=== PATIENT | male | born 1965 | race African-American/Black ===

== ENCOUNTER 2020-09-08 09:16 | Inpatient (IN) | payer OTHER ==
[~2020-09-08] VITALS: Ht 182.9 cm; Wt 96.2 kg
[2020-09-08 09:17] VITALS: BP 139/76
[2020-09-08] MEDS ORDERED: BIKTARVY 50-201 EACH PO (09:23)
[2020-09-08 10:04] LABS: MCH 32.2 pg (26.0-34.0); MCHC 33.2 g/dL (28.0-37.0); MCV 96.9 fL (80.0-100.0); PLATELET COUNT 308 thou/uL (150-400); RBC 3.72 mil/uL (4.50-6.00); RDW 13.4 % (10.5-14.5); WBC 20.3 thou/uL (4.0-11.0)
[2020-09-08 10:15] LABS: CALCIUM 9.7 mg/dL (8.5-10.1); CREATININE 1.8 mg/dL (0.7-1.3); POTASSIUM 3.3 mmol/L (3.5-5.1)
[2020-09-08 10:19] LABS: APTT 39.9 Seconds (24.5-32.8); D-DIMER 0.65 ug/mLFEU (0.19-0.50); INR 1.1; PROTIME 11.2 Seconds (9.3-11.4)
[2020-09-08 10:28] LABS: ALBUMIN 3.3 g/dL (3.4-5.0); TOTAL PROTEIN 8.8 g/dL (6.4-8.2); TROPONIN-I 0.07 ng/mL (<0.06)
--- NOTE | 2020-09-08 10:46 | EKG ---
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 : 1965 Requested By: Bello Couch Order Number: [id number] MD: Matthew Fuentes Measurements Intervals Brooks Rate: 109 P: 44 GA: 122 QRS: 209 QRSD: 88 T: 3 QT: 321 QTc: 433 Interpretive Statements Sinus tachycardia Right axis deviation Abnormal R-wave progression, late transition Compared to ECG 12/05/2000 07:59:22 Right-axis deviation now present Electronically Signed On 09-08-2020 10:46:10 PUBLICATIONS PRODUCTION SUPERVISOR by Matthew Fuentes [email or web address] <ELECTRONICALLY SIGNED> By: Mathtew Fuentes MD 09/08/20 1046 1005 [id number] MD CHERRY Echeverria
[2020-09-08 11:25] LABS: BE(vivo) 2.7 mmol/L (-2 to +3); HCO3 26.6 mmol/L (22.0-26.0); PCO2 38.5 mmHg (35.0-45.0); PO2 63.2 mmHg (80.0-100.0); pH 7.457 (7.360-7.450); sO2 93.3 % (92.0-98.0)
[2020-09-08 11:25] LABS: ABSOLUTE NEUTROPHILS 19.3 thou/uL (1.4-8.2); METAMYELOCYTES 1 %
--- NOTE | 2020-09-08 11:53 | NUR ---
SPOKE TO PT'S SISTER, IRMA: [phone], TO PROVIDE UPDATE AFTER CONFIRMING WITH PT THAT IT IS OK TO TALK TO HER.
[2020-09-08 15:10] LABS: HEMATOCRIT 33.7 % (42.0-52.0); HEMOGLOBIN 11.3 gm/dL (14.0-18.0); MCH 32.5 pg (26.0-34.0); MCHC 33.5 g/dL (28.0-37.0); MCV 96.9 fL (80.0-100.0); RBC 3.48 mil/uL (4.50-6.00); RDW 13.4 % (10.5-14.5); WBC 22.5 thou/uL (4.0-11.0)
[2020-09-08 16:36] VITALS: BP 106/67
[2020-09-08 20:10] VITALS: BP 122/76; BP 122/84; BP 126/81
[2020-09-08 20:34] VITALS: BP 134/89
[2020-09-08 20:39] VITALS: BP 134/89
--- NOTE | 2020-09-08 20:44 | NUR ---
Called to give report but nobody answers phone
[2020-09-08 21:05] VITALS: BP 140/85
[2020-09-08 21:41] LABS: BE(vivo) 1.5 mmol/L (-2 to +3); HCO3 25.4 mmol/L (22.0-26.0); PCO2 37.9 mmHg (35.0-45.0); PO2 60.5 mmHg (80.0-100.0); pH 7.444 (7.360-7.450); sO2 92.2 % (92.0-98.0)
[2020-09-09] VITALS (129 sets, daily range): BP systolic 85–131; BP diastolic 49–78
[2020-09-09 01:11] LABS: BE(vivo) -0.6 mmol/L (-2 to +3); HCO3 24.2 mmol/L (22.0-26.0); PCO2 40.4 mmHg (35.0-45.0); pH 7.396 (7.360-7.450); sO2 94.3 % (92.0-98.0)
--- NOTE | 2020-09-09 05:02 | HC ---
[facility] [place] [address] [place] [address] CONSULTATION Name: JUDI GARCIA Room #: [facility] IN M.R.#: [id number] Admission: 09/08/20 Attend Phys: Joss Claros MD Discharge: Date of : 69 Report #: [id number] THIS REPORT FOR: cc: [facility] - Family physician unknown FAM - Family physician unknown Pipo Sheehan MD ~ DATE OF SERVICE: 09/08/2020 INFECTIOUS DISEASE CONSULTATION ATTENDING PHYSICIAN: Dr. Hodge. REASON FOR EVALUATION: COVID-19 infection, complicated by pneumonitis; respiratory failure; under treatment for HIV. HISTORY OF SUBJECTIVE: Chart reviewed, patient examined. This is a 55-year-old gentleman with history of HIV, although he reports undetectable viral load and high CD4 counts in 1200s. He had developed illness in the last several days. He was actually tested positive for COVID-19 roughly 3 days ago. He notably has had some issue with diarrhea subsequent to a colonoscopy as well. He generally feels weak. Over the course of last 24-48 hours prior to admission, he had progressive dyspnea. On evaluation, he was found to be hypoxic, markedly elevated CRP of 556 and procalcitonin level of 20.35. ABGs on 4 liters showed a pO2 of 63. White count was elevated at 20.3. Underwent V/Q scan, which showed no evidence of PE. He has had some low-grade temperature elevations. ALLERGIES: None known. MEDICATIONS: Currently include ceftriaxone, azithromycin, dexamethasone, famotidine, albuterol, cholecalciferol, zinc, vitamin, ondansetron, and ivermectin. PAST MEDICAL HISTORY: History of HIV, well controlled on antiviral therapy, specifically Biktarvy. SOCIAL HISTORY: Occasional ethanol. No tobacco or illicit drug use. FAMILY HISTORY: Noncontributory. REVIEW OF SYSTEMS: Otherwise, unremarkable. PHYSICAL EXAMINATION: GENERAL: He is alert and cooperative. He is in moderate distress. He has BiPAP in place. FiO2 of 50%. HEENT: Normocephalic. Extraocular muscles intact. [facility] [address] [place] [address] CONSULTATION Name: JUDI GARCIA Matthias Room #: 245-P [facility] IN M.R.#: [id number] Admission: 09/08/20 Attend Phys: Joss Claros MD Discharge: Date of : 69 Report #: [id number] LUNGS: Scattered coarse breath sounds. HEART: Distant, regular. Borderline tachycardic. I do not appreciate a murmur. ABDOMEN: Soft, nontender, nondistended. EXTREMITIES: No cyanosis. GENITOURINARY AND RECTAL: Deferred. LABORATORY DATA: As described above. Most recent CBC: White count 22.5, H and H 11.3 and 33.7, platelets of 298. ABGs: pH 7.457, pCO2 of 35, pO2 of 63.2 on 4 liters. Procalcitonin elevated at 20.35. CRP of 556. D-dimer 0.65. ProBNP of 289. Lactic acid 1.7. Chest x-ray, perihilar and bibasilar infiltrates, question viral pneumonia. ASSESSMENT AND PLAN: COVID-19 infection, complicated by pneumonitis, respiratory failure. I am concerned about a secondary bacterial pneumonitis as well given the high procalcitonin, and we will adjust antimicrobial therapy, do additional diagnostic studies to evaluate for bacterial etiologies. He has been on combination therapy for the COVID. We will add remdesivir as well given the severity of his illness at this point. Continue corticosteroids as well as ivermectin and vitamins. He remains quite tenuous at this point. Continue oxygen support. Blood cultures in progress. We will follow through with those. <ELECTRONICALLY SIGNED> By: Pipo Sheehan MD 09/09/20 0502 [id number] [id number] Pipo Sheehan MD /nt
[2020-09-09 05:08] LABS: HEMATOCRIT 28.5 % (42.0-52.0); HEMOGLOBIN 9.4 gm/dL (14.0-18.0); MCH 32.6 pg (26.0-34.0); MCV 98.8 fL (80.0-100.0); PLATELET COUNT 290 thou/uL (150-400); RBC 2.88 mil/uL (4.50-6.00); RDW 13.8 % (10.5-14.5); WBC 20.2 thou/uL (4.0-11.0)
[2020-09-09 05:26] LABS: ALBUMIN 2.4 g/dL (3.4-5.0); CALCIUM 8.3 mg/dL (8.5-10.1); CREATININE 1.7 mg/dL (0.7-1.3); MAGNESIUM 2.6 mg/dL (1.8-2.4); POTASSIUM 3.8 mmol/L (3.5-5.1); TOTAL BILIRUBIN 0.5 mg/dL (0.2-1.0); TOTAL PROTEIN 7.1 g/dL (6.4-8.2)
[2020-09-09 05:34] LABS: ABSOLUTE NEUTROPHILS 18.8 thou/uL (1.4-8.2)
[2020-09-09 05:35] LABS: ANISOCYTOSIS 1+
--- NOTE | 2020-09-09 06:43 | NUR ---
PATIENT ARRIVED AT THE UNITS AT APPROX 0100. PATIENT ON THE VENT. PROPOFOL AND FENTANYL FOR SEDATION. AFEBRILE. VSS. BLOCK IN PLACE WITH GOOD U/O. FAMILY UPDATED. PATIENT CAME WITH PERSONAL BELONGINGS. PHONE WITH PHONE MOLDING CUTTER. PATIENT ID AND INSURANCE CARD. SISTER UPDATED. WILL KEEP MONITORING.
--- NOTE | 2020-09-09 11:42 | NUR ---
CARLA ESCUDERO UPDATED ON PT CONDITION. HER QUESTIONS WERE ANSWERED. CONSENT FOR CENTRAL LINE WAS OBTAINED.
[2020-09-09 11:54] LABS: URINE BILIRUBIN NEGATIVE (Negative); URINE BLOOD 3+ (Negative); URINE COLOR YELLOW; URINE GLUCOSE-RANDOM* NEGATIVE (Negative); URINE KETONES NEGATIVE (Negative); URINE LEUKOCYTES-REFLEX TRACE (Negative); URINE NITRITE-REFLEX NEGATIVE (Negative); URINE PROTEIN (DIPSTICK) 2+ (Negative); URINE UROBILINOGEN 0.2 E.U./dl (0.2-1.0)
[2020-09-09 11:55] LABS: URINE CLARITY CLOUDY
[2020-09-09 12:25] LABS: SQUAMOUS 4-10 Moderate /LPF (0-3)
[2020-09-09 12:26] LABS: MUCUS >6 Heavy strn/LPF (None Seen)
[2020-09-09 12:28] LABS: URINE RBC >20 Many /HPF (0-2); URINE WBC-REFLEX 6-15 Few /HPF (0-5)
[2020-09-09 12:29] LABS: URIC ACID CRYSTALS >10 Many /LPF (None Seen)
[2020-09-09 12:32] LABS: COARSE GRANULAR CASTS 0-3 Few /LPF (None Seen)
--- NOTE | 2020-09-09 15:14 | NUR ---
CONSULTED TO PLACE A CENTRAL LINE FOR A PATIENT POST INTUBATION. COVID +. ORDER AND CONSENT NOTED. A #6F TRIPLE LUMEN CENTRAL LINE WAS PLACED PER HOSPITAL POLICY. LINE WAS 25CM AND ADVANCED TO 7CM EXTERNAL. A STAT CHEST XRAY CONFIRMED LINE IN PROPER POSITION AND RELEASED FOR USE
--- NOTE | 2020-09-09 19:41 | NUR ---
VASCULAR ACCESS NURSE NOTIFIED AGAIN THAT THE PATIENT HAD REMOVED HER CENTRAL LINE. DR. HICKS RESPONDED TO THE PAGE AND RESTRAINTS WERE ORDERED SO SHE WOULD NOT REMOVE THE REPLACEMENT. A #6F TRIPLE LUMEN CENTRAL LINE WAS PLACED TO THE RIGHT IJ PER POLICY. A STAT CHEST XRAY WAS ORDERED FOR CONFIRMATION
--- NOTE | 2020-09-09 22:25 | NUR ---
This RN spoke to sister Gunter regarding patient status at 2200. Updated on ventilator settings, medications, and answered all questions.
[2020-09-10] VITALS (134 sets, daily range): BP systolic 87–131; BP diastolic 54–84
--- NOTE | 2020-09-10 06:42 | NUR ---
Pt weaned down to 60% FiO2, O2 sats up. Pt weaned off of levophed gtt. Remains on heparin gtt, propofol and fentanyl gtt. Restraints intact. Pt progressing towards goals. Will continue to monitor.
--- NOTE | 2020-09-10 08:06 | NUR ---
ORDERS FOR EVAL AND TREAT. Pt CURRENTLY ON VENT AND SEDATED. WILL PLACE ON HOLD AND AWAIT NEW ORDERS WHEN Pt IS APPROPRIATE FOR THERAPY
--- NOTE | 2020-09-10 11:19 | NUR ---
Nutrition: REC initiate Tube feeds of Vital HP 3 cartons/day (or 30 mL/hr) while on present propofol rate. Consider 250 mL H20 flush q 6 hrs with beneprotein powder added in flushes. Currently on IVFs at 125 mL/hr so may need to decrease if flushes ordered.
--- NOTE | 2020-09-10 15:48 | NUR ---
PT ADMITTED RELATED TO COVID PNA. PT IS SEDATED AND INTUBATED FIO2 100%. PT WITH HX OF HIV. PT RECEIVEING CONVALESCENT PLASMA, REMDESIVIR, IVERMECTIN, IV ABX, AND IV STEROIDS. CM CALLED AND SPOKE WITH PT'S SISTER IRMA GARCIA . SHE IS AN ER NURSE IN [place]. 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 SHE INDICATED SHE WASN'T SURE WHO PT'S PCP WAS. PT HAS THREE SISTERS TERENCE RENATE GURROLA IN [place] , KEMAL GARCIA IN [place] , ONE BROTHER WHO LIVES AROUND THE CORNER FROM PT HERE IN [place] , [place] WHO LIVE LOCALLY. IRMA INDICATED THAT SHE AND HER SISTER IN [place] TERENCE HAVE BEEN SWITCHING OFF CALLING FOR UPDATES. CM FOLLOWING REGARDING POSSIBLE NEEDS UPON DISCHARGE. CM TO FOLLOW INDICATED WITH DC PLANNING.
[2020-09-10 16:45] LABS: ALBUMIN 1.9 g/dL (3.4-5.0); CALCIUM 7.9 mg/dL (8.5-10.1); CREATININE 1.3 mg/dL (0.7-1.3); DIRECT BILIRUBIN 0.1 mg/dL (<0.1-0.2); PHOSPHORUS 3.3 mg/dL (2.5-4.9); POTASSIUM 4.6 mmol/L (3.5-5.1); TOTAL BILIRUBIN 0.3 mg/dL (0.2-1.0); TOTAL PROTEIN 6.3 g/dL (6.4-8.2)
--- NOTE | 2020-09-10 19:13 | NUR ---
UPDATED SISTER, IRMA ON PT'S CONDITION, DR ENRIQUE AWARE OF PT'S NEED FOR ANTIVIRAL MEDS FOR HIV, NONE ORDERED OF YET, HE SAID PT WILL BE OK TODAY WITHOUT THEM, DESATED TO 80S, FI02 UP TO 100%, WEANED BACK DOWN TO 90% BY RT, COVID TEST SENT PER DR NARANJO, REPORT GIVEN TO NAIN HINKLE
[2020-09-11] VITALS (98 sets, daily range): BP systolic 98–140; BP diastolic 58–84
--- NOTE | 2020-09-11 06:56 | NUR ---
RECEIVED OT ORDERS ON 09/08/2020, YESTERDAY (09/10) OT DEFERRED DUE TO PT. ON VENTILATOR, COVID +, AND IN RESTRAINTS. NOT APPROPRIATE FOR THERAPY. TODAY, CHART REVEALS SAME. WILL PLACE PT. ON HOLD AND AWAIT NEW ORDERS WHEN APPROPRIATE TO BEGIN THERAPY.
[2020-09-11 07:06] LABS: HEMATOCRIT 29.3 % (42.0-52.0); HEMOGLOBIN 9.6 gm/dL (14.0-18.0); MCH 32.8 pg (26.0-34.0); MCHC 32.9 g/dL (28.0-37.0); MCV 99.8 fL (80.0-100.0); RBC 2.93 mil/uL (4.50-6.00); RDW 14.1 % (10.5-14.5); WBC 11.9 thou/uL (4.0-11.0)
[2020-09-11 07:21] LABS: ANION GAP 10 mmol/L (7-16); BUN 22 mg/dL (7-18); CALCIUM 8.2 mg/dL (8.5-10.1); CHLORIDE 111 mmol/L (98-107); CO2 25 mmol/L (21-32); CREATININE 1.3 mg/dL (0.7-1.3); DIRECT BILIRUBIN < 0.1 mg/dL (<0.1-0.2); GLUCOSE 151 mg/dL (74-106); PHOSPHORUS 3.1 mg/dL (2.5-4.9); POTASSIUM 4.2 mmol/L (3.5-5.1); SGOT 21 U/L (15-37); SGPT 45 U/L (30-65); SODIUM 146 mmol/L (136-145); TOTAL BILIRUBIN 0.3 mg/dL (0.2-1.0); TOTAL PROTEIN 6.4 g/dL (6.4-8.2)
--- NOTE | 2020-09-11 19:37 | NUR ---
ASSUMED CARE OF PT 0700. 1100 DR JOEY MOYA REGARDING HEPARIN GTT. HEPARING GTT DC'D THIS AFTERNOON. TUBEFEED INCREASED TO GOAL OF 30 AT 1600. VERSED ADDED IN AM W/PT BREATHING 29. 1745 NITA COOK REGARDING PT BLOOD GLUCOSE OF 210. MODERATE SLIDING SCALE INTITIATED PER JOEY. ADEQUATE OUTPUT. AFEBRILE. PROGRESSING IN PLAN OF CARE
[2020-09-12] VITALS (58 sets, daily range): BP systolic 92–130; BP diastolic 58–84
--- NOTE | 2020-09-12 03:14 | NUR ---
pt remains intubated with ac at 18 and fio2 down to 75%, remains sedated with propafol and versed, pain controlled with fentanyl gtt, tf at goal of 30 and 250 h2o flushes residual as high as 50cc this shift. giron with dark sediment and adequate output repositioning as needed. updated sister on pts progress will con't to monitor per ppoc.
[2020-09-12 05:22] LABS: HEMATOCRIT 28.9 % (42.0-52.0); HEMOGLOBIN 9.3 gm/dL (14.0-18.0); MCH 32.6 pg (26.0-34.0); MCHC 32.4 g/dL (28.0-37.0); MCV 100.7 fL (80.0-100.0); RBC 2.87 mil/uL (4.50-6.00); WBC 11.7 thou/uL (4.0-11.0)
[2020-09-12 05:41] LABS: ALBUMIN 1.9 g/dL (3.4-5.0); ANION GAP 9 mmol/L (7-16); BUN 19 mg/dL (7-18); CALCIUM 7.9 mg/dL (8.5-10.1); CHLORIDE 106 mmol/L (98-107); CO2 27 mmol/L (21-32); CREATININE 1.3 mg/dL (0.7-1.3); DIRECT BILIRUBIN < 0.1 mg/dL (<0.1-0.2); GLUCOSE 212 mg/dL (74-106); POTASSIUM 3.3 mmol/L (3.5-5.1); SGOT 16 U/L (15-37); SGPT 39 U/L (30-65); SODIUM 142 mmol/L (136-145); TOTAL BILIRUBIN 0.4 mg/dL (0.2-1.0); TOTAL PROTEIN 6.2 g/dL (6.4-8.2)
--- NOTE | 2020-09-12 09:28 | NUR ---
BG levels elevated, recommend consider discontinue D5 since hypernatremia has been corrected. Recommend increase tube feed to new goal of 40ml/hr and continue 1 packet beneprotein in each water flush.
--- NOTE | 2020-09-12 13:09 | NUR ---
Pt sister Lyric was updated today. Her questions were answered.
--- NOTE | 2020-09-12 19:40 | NUR ---
VAT CHANGED RIJ DRESSING, LARGE AMT SECRETIONS ON AND UNDER CVAD DRG. SPOKE WITH RADHA RN, RECOMMENDED SC PLACED DUE TO INCREASED INFECTION RISK WITH SECRETIONS ON RIJ
[2020-09-13] VITALS (62 sets, daily range): BP systolic 90–136; BP diastolic 49–88
[2020-09-13 05:12] LABS: HEMATOCRIT 31.1 % (42.0-52.0); HEMOGLOBIN 9.9 gm/dL (14.0-18.0); MCH 32.1 pg (26.0-34.0); MCV 100.4 fL (80.0-100.0); RBC 3.1 mil/uL (4.50-6.00); RDW 13.8 % (10.5-14.5); WBC 15.8 thou/uL (4.0-11.0)
[2020-09-13 05:39] LABS: CALCIUM 8.1 mg/dL (8.5-10.1); CREATININE 1.3 mg/dL (0.7-1.3); POTASSIUM 4.2 mmol/L (3.5-5.1)
--- NOTE | 2020-09-13 06:12 | NUR ---
SPOKE WITH PT'S FAMILY MEMBER IRMA VIA PHONE. SHE INQUIRED ABOUT PT'S CURRENT STATUS AND ASKED FOR A WAY TO SEE PT. DISCUSSED USING AN IPAD FOR FACETIMING WITH THE PT. IRMA STATED THAT SHE WOULD LIKE TO TRY THIS TODAY. THE IPHONE NUMBER SHE WOULD HAVE IS [phone]. VSS. 1 LITER OF URINE OUTPUT VIA BLOCK. NO BM THIS SHIFT. BATH AND LINEN CHANGED. GLIDE SHEET PLACED UNDER PT FOR EASE OF MOVEMENT. CLRT. TOLERATING TUBE FEEDS. ATTEMPTS TO WEAN FI02 LEVEL. UNABLE TO TOLERATE AND DE-SATS. REMAINS AT 70%. LARGE AMOUNT OF ORAL SECRETIONS. THICK WADE SPUTUM INLINE. PT SLOWLY PROGRESSING TOWARDS GOALS IN PLAN OF CARE.
--- NOTE | 2020-09-13 13:00 | NUR ---
PATIENTS FAMILY CALLED, AND DID FACETIME WITH PATIENT FOR 2HOURS. FAMILY ALSO UPDATED ON PATIENTS STATUS AND PLAN OF CARE.
--- NOTE | 2020-09-13 20:08 | NUR ---
PATIENT MAINTAINING STATUS. NOT IMPROVING, BUT IS NOT DIGRESSING. PATIENT REMAINS ON VENT. CONTINUE TF. CONT SEDATION.
[2020-09-14] VITALS (51 sets, daily range): BP systolic 102–143; BP diastolic 64–93
[2020-09-14 05:31] LABS: CALCIUM 8.4 mg/dL (8.5-10.1); CREATININE 1.3 mg/dL (0.7-1.3); POTASSIUM 3.9 mmol/L (3.5-5.1)
[2020-09-14 05:36] LABS: HEMATOCRIT 26.6 % (42.0-52.0); HEMOGLOBIN 8.6 gm/dL (14.0-18.0); MCHC 32.1 g/dL (28.0-37.0); MCV 99.6 fL (80.0-100.0); RBC 2.67 mil/uL (4.50-6.00); RDW 14.1 % (10.5-14.5); WBC 14.8 thou/uL (4.0-11.0)
[2020-09-14 08:21] LABS: BE(vivo) 2.1 mmol/L (-2 to +3); HCO3 27.4 mmol/L (22.0-26.0); PCO2 45.8 mmHg (35.0-45.0); PO2 67.1 mmHg (80.0-100.0); pH 7.394 (7.360-7.450); sO2 93.2 % (92.0-98.0)
--- NOTE | 2020-09-14 14:45 | NUR ---
1445- Nurse updated patients spokes person, Lyric, on current status and plan of care. She expressed she is coming into town from [place], this coming Thursday. 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
[2020-09-15] VITALS (32 sets, daily range): BP systolic 96–137; BP diastolic 58–83
--- NOTE | 2020-09-15 19:30 | NUR ---
Patient not progressing towards plan of care as evidenced by continued requirement for high peep setting on ventilator. This was communicated to patients spokes person. Plan of care is to continue to monitor for need for ventilator, continue to provide medication as prescribed to help with patients bowels, monitor tube feeding tolerance, and perform assessments q2-4 hours.
--- NOTE | 2020-09-15 22:29 | NUR ---
ASSUMED CARE OF PT AT 1900. PT SEDATED ON PROPOFOL, VERSED, AND FENTANYL. VENT SETTINGS UNCHANGED, SATING 100%. TOLERATING TUBE FEEDING, LARGE BOWEL MOVEMENT NOTED, RECTAL TUBE INSERTED. 2209 - IRMA (SISTER) CALLED. UPDATED GIVEN. QUESTIONS ANSWERED. SISTER PLANS ON TRAVELING FROM [place] TO BE CLOSE TO BROTHER. THIS RN WENT OVER VISITING POLICY AND SISTER WAS VERY PLEASANT AND STATED SHE UNDERSTOOD.
[2020-09-16] VITALS (31 sets, daily range): BP systolic 91–137; BP diastolic 51–80
[2020-09-16 03:44] LABS: BE(vivo) 6.8 mmol/L (-2 to +3); HCO3 31.2 mmol/L (22.0-26.0); PCO2 44.2 mmHg (35.0-45.0); PO2 60.7 mmHg (80.0-100.0); pH 7.467 (7.360-7.450); sO2 92.5 % (92.0-98.0)
[2020-09-16 05:09] LABS: HEMATOCRIT 25.9 % (42.0-52.0); HEMOGLOBIN 8.6 gm/dL (14.0-18.0); MCH 32.4 pg (26.0-34.0); MCV 98.2 fL (80.0-100.0); PLATELET COUNT 431 thou/uL (150-400); RBC 2.64 mil/uL (4.50-6.00); RDW 13.8 % (10.5-14.5); WBC 16.5 thou/uL (4.0-11.0)
[2020-09-16 05:27] LABS: ALBUMIN 2.5 g/dL (3.4-5.0); CALCIUM 8.8 mg/dL (8.5-10.1); CREATININE 1.4 mg/dL (0.7-1.3); POTASSIUM 3.6 mmol/L (3.5-5.1); TOTAL BILIRUBIN 0.3 mg/dL (0.2-1.0); TOTAL PROTEIN 6.6 g/dL (6.4-8.2)
[2020-09-16 06:11] LABS: ABSOLUTE NEUTROPHILS 12.9 thou/uL (1.4-8.2); METAMYELOCYTES 1 %
--- NOTE | 2020-09-16 14:31 | NUR ---
1431: Nurse updated patients sister, Lyric, on patient current fio2, and status. She expressed she undestood he had a bowel movement last night. Nurse answered her questions. Her plans are to come tomorrow to get his cell phone, and garbage pick up man his inurance and ID card, at the ED.
--- NOTE | 2020-09-16 15:05 | NUR ---
Patient not progressing towards plan of care as evidenced by patient fio2 and peep 10. He is tolerating tube feedings and continued with stools. Plan of care is to continue to monitor for ability to wean off ventilator, and assessments q2-4 hours.
[2020-09-17] VITALS (32 sets, daily range): BP systolic 87–130; BP diastolic 51–86
--- NOTE | 2020-09-17 00:20 | NUR ---
ARGATROBAN GTT TITRATION: DRIP INITIATED AT 210909/16/20. PER PROTOCOL APPT WAS DRAWN AFTER TWO HOURS OF INFUSING. APTT AT 2315 ON 09/16/20: 49.0. CONSIDERED IN THERAPEUTIC RANGE. WILL PLAN TO REDRAW ANOTHER APTT IN TWO HOURS PER PROTOCOL. NO CHANGE MADE TO GTT WHICH IS CURRENTLY RUNNING AT 0.5 MCG/KG/MIN.
--- NOTE | 2020-09-17 16:23 | NUR ---
Pt is covid positive. Pt remains intubated with FIO2 60% PEEP 10. Pt is on enteral tube feedings. Pt on iv vanc and ceftriaxone. Cm following.
--- NOTE | 2020-09-17 19:44 | NUR ---
PT IS NOT PROGRESSING TOWARDS DISCHARGE, RN ATTEMPTED TO WEAN THE PT'S SEDATION, PT DID NOT TOLERATE EVIDENCED BY INTENSE COUGHING AND GAGGING. CPAP TRIAL WAS ATTEMPTED BY RT, PT LASTED ABOUT 1 MIN RR WAS INCREASED TO 45 AND PT HAD DESAT AT THAT POINT. Q2H TURNS WERE MAINTAINED THROUGHOUT THE SHIFT. FAMILY MEMBERS DID NOT CALL THIS SHIFT. RN SIGNING OFF AT THIS TIME
[2020-09-18] VITALS (28 sets, daily range): BP systolic 90–127; BP diastolic 54–82
--- NOTE | 2020-09-18 06:46 | NUR ---
ASSESSMENT: PT REMAIN SEDATED WHILE INTUBATED. VSS, AFEBRILE. UO ADEQUATE, LIQUID STOOL NOTED IN FMS TUBE. COMPLETE BATH GIVEN. TOLERATING TF PER OG. SR PER MONITOR. DID NOT SPEAK WITH FAMILY LAST NIGHT. VENT SETTING UNCHANGED DURING THE NIGHT. RIGHT IJ INTACT AND PATENT. SLOW PROGRESS TOWARDS DC GOALS. WILL CONTINUE TO MONITOR.
[2020-09-18 09:30] LABS: ALBUMIN 2.3 g/dL (3.4-5.0); CALCIUM 8.7 mg/dL (8.5-10.1); CREATININE 1.2 mg/dL (0.7-1.3); MAGNESIUM 2.4 mg/dL (1.8-2.4); POTASSIUM 3.9 mmol/L (3.5-5.1); TOTAL BILIRUBIN 0.3 mg/dL (0.2-1.0); TOTAL PROTEIN 6.4 g/dL (6.4-8.2)
--- NOTE | 2020-09-18 11:15 | NUR ---
IRMA- sister called to inquire regarding pt status. updated on sedation, vent settings, yesterday unable to tolerate cpap trial since hr and rr rate increased only after 2 minutes. remains in critical condition. she stated that she spoke with Dr. Chelsie cardona's infectious disease md. (bactrium always worked well whether indicated or not.) sister questioned about pt being on Vitarvi, then further continued that she just discovered pt is a new onset diabetic.
--- NOTE | 2020-09-18 18:40 | NUR ---
Lyric, sister inquired in am about 0930 regarding pt status. see previous note. she asked to have the opportunity to face time. At this time, Lyric is face timing with her brother. ipad in room and she has the opportunity to speak with him as long as she prefers.
[2020-09-19] VITALS (30 sets, daily range): BP systolic 89–151; BP diastolic 49–91
[2020-09-19 03:28] LABS: BE(vivo) 10.2 mmol/L (-2 to +3); HCO3 34.5 mmol/L (22.0-26.0); PCO2 45.3 mmHg (35.0-45.0); PO2 74.3 mmHg (80.0-100.0); pH 7.499 (7.360-7.450); sO2 95.9 % (92.0-98.0)
[2020-09-19 05:43] LABS: BASOPHILS 0.5 % (0.0-2.0); EOSINOPHILS 0.4 % (0.0-3.0); HEMATOCRIT 26.2 % (42.0-52.0); HEMOGLOBIN 8.7 gm/dL (14.0-18.0); LYMPHOCYTES 13.6 % (24.0-44.0); MCH 32.7 pg (26.0-34.0); MCHC 33.1 g/dL (28.0-37.0); MCV 98.7 fL (80.0-100.0); MONOCYTES 16.3 % (1.0-8.0); PLATELET COUNT 384 thou/uL (150-400); POLYS 69.2 % (36.0-66.0); RBC 2.66 mil/uL (4.50-6.00); RDW 13.6 % (10.5-14.5); WBC 15.9 thou/uL (4.0-11.0)
--- NOTE | 2020-09-19 06:05 | NUR ---
ASSESSMENT: PT REMAIN STATUS QUO. VENT SETTINGS CHANGED FIO2 40%, PEEP 8, AC 18, TV 500. TOLERATING TUBE FEEDING. LOW RESIDUALS. LOW GRADE TEMP AT THE BEGINNING OF THE SHIFT, 99.0 MAX. COPIOUS AMTS OF ORAL SECRETIONS. MINIMAL AMTS PER ETT. VSS, SLOW PROGRESS TOWARDS DC GOALS,. WILL CONTINUE TO MONITOR.
[2020-09-19 06:18] LABS: ALBUMIN 2.8 g/dL (3.4-5.0); CALCIUM 9.4 mg/dL (8.5-10.1); CREATININE 1.3 mg/dL (0.7-1.3); POTASSIUM 3.6 mmol/L (3.5-5.1); TOTAL BILIRUBIN 0.4 mg/dL (0.2-1.0)
[2020-09-19 14:39] LABS: URINE BILIRUBIN NEGATIVE (Negative); URINE BLOOD 2+ (Negative); URINE CLARITY SL CLOUDY; URINE COLOR YELLOW; URINE GLUCOSE-RANDOM* NEGATIVE (Negative); URINE KETONES NEGATIVE (Negative); URINE LEUKOCYTES-REFLEX NEGATIVE (Negative); URINE NITRITE-REFLEX NEGATIVE (Negative); URINE PROTEIN (DIPSTICK) NEGATIVE (Negative); URINE SPECIFIC GRAVITY 1.025 (1.005-1.035); URINE UROBILINOGEN 0.2 E.U./dl (0.2-1.0)
[2020-09-19 15:23] LABS: MUCUS 0-3 Light strn/LPF (None Seen); SQUAMOUS None Seen /LPF (0-3)
[2020-09-19 15:25] LABS: AMORPHOUS URATES Few /LPF (None Seen); BACTERIA-REFLEX 1-9 Few /HPF (None Seen); CRYSTALS None Seen /LPF (None Seen); URINE RBC >20 Many /HPF (0-2); URINE WBC-REFLEX 0-5 Rare /HPF (0-5)
--- NOTE | 2020-09-19 15:32 | NUR ---
ASSUMED CARE OF PT AT 0700. PT SEDATED, AROUSABLE, ABLE TO NOD AND FOLLOW SIMPLE COMMANDS. STABLE ON CURRENT VENT SETTINGS: TV 500 AC 18 PEEP 8 FIO2 40%. TOLERATING TUBE FEED. NO SIGNIFICANT RESIDUALS. CONTINUES ON PROPOFOL, FENTANYL AND VERSED GTT. C SIN PLACE. LOW GRADE FEVERS REMAIN - BLOOD CULTURES DRAWN. URINE AND SPUTUM COLLECTED AND SENT TO LAB. SLOW PROGRESS TOWARD POC GOALS.
[2020-09-20] VITALS (37 sets, daily range): BP systolic 82–165; BP diastolic 48–90
[2020-09-20 03:55] LABS: BE(vivo) 12.1 mmol/L (-2 to +3); HCO3 36.4 mmol/L (22.0-26.0); PCO2 46.4 mmHg (35.0-45.0); PO2 74.9 mmHg (80.0-100.0); pH 7.513 (7.360-7.450); sO2 96.1 % (92.0-98.0)
[2020-09-20 05:55] LABS: ABSOLUTE NEUTROPHILS 8.6 thou/uL (1.4-8.2); BASOPHILS 0.8 % (0.0-2.0); EOSINOPHILS 0.4 % (0.0-3.0); HEMATOCRIT 24.7 % (42.0-52.0); HEMOGLOBIN 8.1 gm/dL (14.0-18.0); MCV 99.9 fL (80.0-100.0); MONOCYTES 17.5 % (1.0-8.0); PLATELET COUNT 310 thou/uL (150-400); POLYS 64.3 % (36.0-66.0); RBC 2.47 mil/uL (4.50-6.00); RDW 14.5 % (10.5-14.5); WBC 13.4 thou/uL (4.0-11.0)
[2020-09-20 06:09] LABS: CALCIUM 9.3 mg/dL (8.5-10.1); CREATININE 1.2 mg/dL (0.7-1.3); POTASSIUM 3.6 mmol/L (3.5-5.1); TOTAL BILIRUBIN 0.5 mg/dL (0.2-1.0)
--- NOTE | 2020-09-20 06:40 | NUR ---
ASSESSMENT: SPOKE WITH IRMA, THE PT'S SISTER. SHE WAS ABLE TO FACE TIME WITH PT FOR A SHORT PERIOD OF TIME BEFORE BATTERY NEEDED RECHARGING. PT BECAME TEARY WITH THE PHONE CALL. WILL CONTINUE TO MONITOR.
--- NOTE | 2020-09-20 14:14 | NUR ---
ON-GOING ASSESSMENT: CM REVIEWED CHART. PT REMAINS ON THE VENT, IV ANBX, IV STEROIDS. POSSIBLE WEANING TRIALS. CM WILL CONTINUE TO FOLLOW TO ASSIST NEEDED.
[2020-09-20 16:46] LABS: BE(vivo) 7.5 mmol/L (-2 to +3); HCO3 31.9 mmol/L (22.0-26.0); PCO2 44.9 mmHg (35.0-45.0); PO2 93.7 mmHg (80.0-100.0); sO2 97.5 % (92.0-98.0)
--- NOTE | 2020-09-20 21:05 | NUR ---
0900-ASHISH COOK & NAM IN.--VW
[2020-09-21] VITALS (34 sets, daily range): BP systolic 117–189; BP diastolic 72–104
[2020-09-21 08:57] LABS: BE(vivo) 7.5 mmol/L (-2 to +3); HCO3 31.4 mmol/L (22.0-26.0); PCO2 41.8 mmHg (35.0-45.0); pH 7.494 (7.360-7.450); sO2 94.2 % (92.0-98.0)
--- NOTE | 2020-09-21 11:24 | NUR ---
ASSUMED CARE OF PT AT 0700 DR. ENRIQUE AT BEDSIDE AT 0900, NO NEW ORDERS GIVEN DR. COOK AT BEDSIDE AT 0900, NO NEW ORDERS GIVEN DR. WHITE AT BEDSIDE AT 1100, NO NEW ORDERS GIVEN
[2020-09-22] VITALS (18 sets, daily range): BP systolic 134–162; BP diastolic 74–98
[2020-09-22 05:28] LABS: HEMATOCRIT 25.6 % (42.0-52.0); HEMOGLOBIN 8.2 gm/dL (14.0-18.0); MCH 31.9 pg (26.0-34.0); MCHC 32.2 g/dL (28.0-37.0); MCV 99.3 fL (80.0-100.0); RBC 2.58 mil/uL (4.50-6.00); RDW 13.9 % (10.5-14.5); WBC 11.8 thou/uL (4.0-11.0)
[2020-09-22 05:40] LABS: CALCIUM 9.8 mg/dL (8.5-10.1); CREATININE 1.3 mg/dL (0.7-1.3); POTASSIUM 3.3 mmol/L (3.5-5.1)
--- NOTE | 2020-09-22 19:42 | NUR ---
assume care of patient following report from Maureen GILLETTE. Dayshift. Patient appears to be sleeping at present.
--- NOTE | 2020-09-22 19:55 | NUR ---
Patient made significant progress in plan of care today. He was able to stand at bedside for 2 minutes with assistance. He visibly made progress in strength throughout the day. There were no desaturation events. He frequently, independently uses his bedside IS as instructed. He tolerated PO crushed meds in applesauce. Patient was also able to facetime with sister, Nica, for over an hour. Nica brought home meds as requested too.
[2020-09-23] VITALS (24 sets, daily range): BP systolic 125–173; BP diastolic 75–99
--- NOTE | 2020-09-23 01:36 | NUR ---
REPORT GIVEN TO MANAN GILLETTE. SHE ASSUMES CARE OF PATIENT.
[2020-09-23 05:22] LABS: ABSOLUTE NEUTROPHILS 4.8 thou/uL (1.4-8.2); BASOPHILS 0.9 % (0.0-2.0); EOSINOPHILS 0.8 % (0.0-3.0); HEMATOCRIT 26.4 % (42.0-52.0); HEMOGLOBIN 8.7 gm/dL (14.0-18.0); LYMPHOCYTES 20.9 % (24.0-44.0); MCH 32.6 pg (26.0-34.0); MCV 98.7 fL (80.0-100.0); MONOCYTES 20.2 % (1.0-8.0); PLATELET COUNT 324 thou/uL (150-400); POLYS 57.2 % (36.0-66.0); RBC 2.67 mil/uL (4.50-6.00); RDW 13.9 % (10.5-14.5); WBC 8.3 thou/uL (4.0-11.0)
[2020-09-23 05:35] LABS: CALCIUM 9.9 mg/dL (8.5-10.1); CREATININE 1.2 mg/dL (0.7-1.3); MAGNESIUM 2.4 mg/dL (1.8-2.4); POTASSIUM 3.3 mmol/L (3.5-5.1); TOTAL BILIRUBIN 0.6 mg/dL (0.2-1.0); TOTAL PROTEIN 7.2 g/dL (6.4-8.2)
--- NOTE | 2020-09-23 07:39 | NUR ---
ASSESSMENT: ASSUMED CARE OF PT AT 0130. PT STABLE. TOLERATING BEING EXTUBATED. VSS, AFEBRILE. ABLE TO STATE NEEDS AND CONCERNS. SR PER MONITOR. SPEAKS OF WANTING SOMETHING TO EAT AND TO GO HOME. DR. ENRIQUE AT THE BEDSIDE THIS AM. ORDERS WRITTEN. WILL CONTINUE TO MONITOR.
--- NOTE | 2020-09-23 11:09 | NUR ---
PT ALERT/ORIENTED. DENIES ANY PAIN, DISCOMFORT OR SHORTNESS OF BREATH. TALKING ON PHONE WITH HIS SISTER UPON ENTERING ROOM. REMAINS NPO PER SPEECH AND NOTED THEY WILL REEVAL. ABLE TO GIVE MEDS WITH APPLESAUCE AND TOLERATING.
--- NOTE | 2020-09-23 16:19 | NUR ---
PATIENT UP TO CHAIR FOR GOOD PORITON OF DAY. UP WITH 1 PERSON ASSIST. VSS. TITRATING DOWN ON OXYGEN. CONTINUES TO PROGRESS.
[2020-09-24] VITALS (15 sets, daily range): BP systolic 116–146; BP diastolic 71–92
--- NOTE | 2020-09-24 06:00 | NUR ---
A VERY DELIGHFUL GENTLEMAN. AWAKE AND ALERT IN GOOD SPIRITS. 1000 CC UO THIS SHIFT. O2 SAT 96 % ON ROOM AIR. UP TO CHAIR. TARIQ WELL. PT IS TARIQ SOFT FOODS. NO PROBLEMS WITH SWALLOWING. SINUS RHYTHM. CAN POSSIBLY TX TODAY PROGRESSING TOWARD GOALS.
[2020-09-24 06:25] LABS: ABSOLUTE NEUTROPHILS 3.5 thou/uL (1.4-8.2); BASOPHILS 1.3 % (0.0-2.0); EOSINOPHILS 1.2 % (0.0-3.0); HEMOGLOBIN 9.6 gm/dL (14.0-18.0); MCH 32.4 pg (26.0-34.0); MCHC 33.1 g/dL (28.0-37.0); MONOCYTES 17.9 % (1.0-8.0); PLATELET COUNT 348 thou/uL (150-400); POLYS 51.6 % (36.0-66.0); RBC 2.96 mil/uL (4.50-6.00); RDW 13.8 % (10.5-14.5); WBC 6.8 thou/uL (4.0-11.0)
[2020-09-24 06:43] LABS: CALCIUM 9.9 mg/dL (8.5-10.1); CREATININE 1.3 mg/dL (0.7-1.3); MAGNESIUM 2.3 mg/dL (1.8-2.4); PHOSPHORUS 3.4 mg/dL (2.6-4.7); POTASSIUM 3.6 mmol/L (3.5-5.1)
--- NOTE | 2020-09-24 14:07 | NUR ---
ON-GOING ASSESSMENT: CM REVIEWED CHART. PT WAS EXTUBATED ON 09/21 AND IS CURRENTLY ON 1L OXYGEN. PT WAS ABLE TO START WORKING WITH THERAPY. 5N CONSULT WAS PLACED AND LIASON NOTIFIED. CM WILL CONTINUE TO FOLLOW TO ASSIST NEEDED.
--- NOTE | 2020-09-24 16:57 | NUR ---
Patient progressing towards plan of care as evidenced by room air status, alert and oriented, and attempting to increase stamina/activity. It was noted to RN that left side significantly weaker than right from PT/OT. This was relayed to physician or expressed to order a non-contrast cat scan. This will be performed this shift. Patient denies pain. Plan of care is to continue to monitor patient vital signs twice a shift, perform assessment every shift, and monitor intake and output.
--- NOTE | 2020-09-24 17:35 | NUR ---
patient just returned from having a cat scan performed. Nurse helped set him up for supper. He is eager to do things on his own.
[2020-09-25 03:59] VITALS: BP 120/78
--- NOTE | 2020-09-25 05:03 | NUR ---
ASSUME CARE 1900. PT/VITALS STABLE. DENEIS ANY PAIN. MODERATE TOLERANCE TO ACTIVITY. NOTED WEAKNESS ANDF MILD DRIFTING OF EXTREMITIES. A/O X 4. PT ON ROOM AIR AND SATS ABOUT 98% WHILE AWAKE AND 94% DURTING SLEEP. COUGH EFFORT IS GREAT WITH MILD SPUTUM PRODUCTION. ADEQUATE URINATION. ASSESSMENT CHARTED. PROGRESSING WELL WITH POC. PLAN IS A POSSIBLE DISCHARGE FROM ICU TO A STEP DOWN UNIT, AND A POSSIBLE DISCHARGE FROM THE HOSPITAL WITHIN A FEW DAYS. WILL CONTINUE TO MONITOR AND FOLLOW WITH POC
[2020-09-25 08:00] VITALS: BP 149/90
--- NOTE | 2020-09-25 11:53 | NUR ---
WALKED AROUND ROOM WITH PT, REQUIRED 1L O2 AFTER DESATING INTO 80'S. STABLE AMBULATION WITH WALKER.
[2020-09-25 20:05] VITALS: BP 130/73
[2020-09-26 04:16] VITALS: BP 124/79
--- NOTE | 2020-09-26 05:36 | NUR ---
Transferred from ICU last night. Tolerating room air well with no respiratory distress. Cont. on enhanced precaution , max temp 99.6 orally. Up with assist to bathroom this am using walker. Making progress towards care plan goals.
[2020-09-26 07:46] VITALS: BP 132/66
--- NOTE | 2020-09-26 08:35 | NUR ---
on-going assessment: CM SPOKE WITH [facility] FROM WHO REPORTS PT COULD QUALIFY FOR THEM BUT HE IS WANTING TO GO HOME. CM SPOKE WITH PT AND HE REPORTS HE DOES NOT WANT TO GO TO REHAB. CM DISCUSSED POSSIBLE HOME HEALTH AND PT IS DECLINING HOME HEALTH WELL. PT REPORTS THAT HE HAS FAMILY COMING INTO TOWN THAT WILL STAY AND HELP HIM. PT REPORTS HIS SISTER REYNALDO IS COMING INTO TOWN THURSDAY AND STAYING FOR 2 WEEKS, THEN HIS SISTER DAVI IS COMING FOR TWO WEEKS. PT REPORTS HAVING A WALKER, WHEELCHAIR, AND CANE AT HOME. PT DECLINING AND HOME HEALTH AT THIS TIME.
[2020-09-26] MEDS ORDERED: NORVASC5 MG PO (11:00)
[2020-09-26 11:48] VITALS: BP 132/66
--- NOTE | 2020-09-26 15:58 | NUR ---
RN ASUMMED PT'S CARE AT 0700AM, PT IS A&OX3, PT IS ON ROOM AIR , PT'S VS AND O2SAT ARE STABLE, PT DENIES SOB AND PAIN, PT CAN GET UP TO BATH ROOM WITH WALKER, RN RECEIVED ORDER TO DC PT TO HOME WITH HOME HEALTH, RN HAS GIVING PT DISCHARGE TEACHING , PT UNDERSTANDS WELL , PT'S SISTER METEOROLOGICAL AIDE PT AT 1550PM.PT'S R IJ CENTRAL HAS REMOVED , PT IS TOLERATED.
== END 2020-09-26 15:43 | disposition home health service (06) | DRG 974 ==
LOC: ER 09:16 → 3W 11:42 → ICU 11:42 → EROBS 11:42 → ICU 09-09 00:45 → 3W 09-25 21:00
PROVIDERS: Emergency Medicine; Hospitalist; Internal Medicine; Internal Medicine Pulmonary Disease; Pediatrics; Specialist; ADMIT Internal Medicine; ATTEND Internal Medicine
PROC: XW033E5 Introduction of Remdesivir Anti-infective into Peripheral Vein, Percutaneous Approach, New Technology Group 5 (ICD-10-PCS; principal; 2020-09-08)
PROC: XW13325 Transfusion of Convalescent Plasma (Nonautologous) into Peripheral Vein, Percutaneous Approach, New Technology Group 5 (ICD-10-PCS; principal; 2020-09-08)
PROC: 5A09357 Assistance with Respiratory Ventilation, Less than 24 Consecutive Hours, Continuous Positive Airway Pressure (ICD-10-PCS; principal; 2020-09-08)
PROC: 5A1955Z Respiratory Ventilation, Greater than 96 Consecutive Hours (ICD-10-PCS; 2020-09-09)
PROC: 0BH17EZ Insertion of Endotracheal Airway into Trachea, Via Natural or Artificial Opening (ICD-10-PCS; 2020-09-09)
PROC: 02HV33Z Insertion of Infusion Device into Superior Vena Cava, Percutaneous Approach (ICD-10-PCS; 2020-09-09)
DX: A41.9 Sepsis, unspecified organism (principal); J96.01 Acute respiratory failure with hypoxia; B20 Human immunodeficiency virus [HIV] disease; U07.1 COVID-19; J12.82 Pneumonia due to coronavirus disease 2019; J96.02 Acute respiratory failure with hypercapnia; G92 Toxic encephalopathy; N17.9 Acute kidney failure, unspecified; E46 Unspecified protein-calorie malnutrition; G72.81 Critical illness myopathy; K59.00 Constipation, unspecified; E66.01 Morbid (severe) obesity due to excess calories; D64.9 Anemia, unspecified; Z68.28 Body mass index [BMI] 28.0-28.9, adult; Z91.041 Radiographic dye allergy status; Z91.013 Allergy to seafood; Z79.899 Other long term (current) drug therapy
CPT/HCPCS: 10203; 10204; 10779